=== PATIENT | female | born 1950 | race Two or more races ===

== ENCOUNTER 2020-11-10 13:00 | Outpatient (CLI) | payer MEDICARE, OTHER ==
[2020-11-11] MEDS ORDERED: VITAMIN D ORAL (12:36)
[2020-11-11] MEDS ORDERED: FARXIGA10 MG PO (12:36)
[2020-11-11] MEDS ORDERED: SYNTHROID88 MCG ORAL (12:36)
[2020-11-11] MEDS ORDERED: METOPROLOL SUCC25 MG ORAL (12:36)
[2020-11-11] MEDS ORDERED: GLIMEPIRIDE1 MG ORAL (12:36)
[2020-11-11] MEDS ORDERED: LORATADINE10 M1 PO (12:36)
[2020-11-11] MEDS ORDERED: OMEPRAZOLE20 M2 ORAL (12:36)
[2020-11-11] MEDS ORDERED: FAMOTIDINE20 MG ORAL (12:36)
[2020-11-11] MEDS ORDERED: JENTADUETO 2.51 EAC2 PO (12:36)
[2020-11-11] MEDS ORDERED: MELOXICAM15 MG PO (12:36)
--- NOTE | 2020-11-15 17:44 | Consultation ---
DATE OF CONSULTATION: 11/10/2020 CONSULTING PHYSICIAN: Urban Berry MD REFERRING PHYSICIAN: Corey Chun MD CHIEF COMPLAINT: Abdominal pain. HISTORY OF PRESENT ILLNESS: This is a very pleasant 70-year-old female with multiple medical problems, which I will dictate in a second who presented with complaint of abdominal pain. This abdominal pain is going on for a while. Complaining of nausea. No vomiting. No dysphagia. No odynophagia. PAST MEDICAL HISTORY: 1. Diabetes. 2. Hypothyroidism. 3. Colon polyps. Patient apparently had 10 polyps in last colonoscopy. PAST SURGICAL HISTORY: 1. Oophorectomy. 2. Hysterectomy. 3. x3. MEDICATIONS: Please see medication reconciliation list. FAMILY HISTORY: Noncontributory. SOCIAL HISTORY: Patient denies any tobacco, alcohol, or drug use. ALLERGIES: To sulfa. PHYSICAL EXAMINATION: GENERAL: A well-developed female, in no acute distress. VITAL SIGNS: Temperature 97.3, blood pressure 130/79, pulse 70, respirations 20. HEENT: Normocephalic and atraumatic. Sclerae anicteric. NECK: Supple. No evidence of obvious lymphadenopathy. CARDIOVASCULAR: Regular rate and rhythm. Plus S1-S2. LUNGS: Clear to auscultation bilaterally. ABDOMEN: Positive bowel sounds. Soft and nontender. No rebound. No guarding. No peritoneal sign. EXTREMITIES: No cyanosis. No clubbing. No edema. ASSESSMENT AND PLAN: This is a 70-year-old female with abdominal pain. Patient had multiple polyps. According to her, she had 10 polyps in 2018. She was told to have another colonoscopy in 1 year. Patient is scheduled to have a colonoscopy on 12/13/2020 at . Patient was given the prep, the instruction. The risks and benefits of procedure were explained to her. We will follow. Urban Berry M.D. DR: JONNY JOB#: [id number] CC:
== END 2020-11-10 15:00 | disposition home or self-care (01) ==
LOC: PAN 13:00
DX: R10.9 Unspecified abdominal pain (principal)
CPT/HCPCS: 99203